=== PATIENT | female | born 1940 | race Caucasian/White ===

== ENCOUNTER → 2019-01-26 08:40 | Outpatient (CLI) | payer MEDICARE, SELFPAY ==
--- NOTE | 2019-01-26 08:47 | US_ITS ---
PROCEDURE: US ABDOMEN LIMITED CLINICAL INDICATION: LIVER LESION Follow-up liver lesion COMPARISON: CT ABDOMEN PELVIS WO CON from 01/17/2019 FINDINGS: PANCREAS: Unremarkable. No obvious mass or abnormal fluid collection. No ductal dilatation LIVER: Previously noted hypodense nodule within the left lobe of the liver represents a cyst measuring 3 x 2.6 cm with some septations along the margin. RIGHT KIDNEY: Unremarkable. Normal size and echogenicity. No hydronephrosis GALLBLADDER: No gallstones, gallbladder wall thickening, pericholecystic fluid, or biliary dilatation. IMPRESSION: Liver lesion noted on the recent CT scan represents a cyst with a small peripheral septation. Otherwise negative right upper quadrant ultrasound Dictated by: Fran Lim MD 01/26/2019 16:24 Electronically signed by Fran Lim MD in [place] 01/26/2019 16:24
--- NOTE | 2019-01-26 08:47 | US_ITS ---
PROCEDURE: US TRANSVAGINAL CLINICAL INDICATION: ADNEXAL MASS Right adnexal mass seen on CT scan COMPARISON: CT ABDOMEN PELVIS WO CON from 01/17/2019 FINDINGS: The uterus is 4 x 3 x 3.4 cm. Combined endometrial thickness is 2 mm. Transabdominal and endovaginal exam is performed. The study is limited technically. The images submitted suggest a cystic mass in the right adnexa at 3 cm.. Free fluid is present in this area. There is a moderate around of surrounding bowel which limits the exam. IMPRESSION: There does appear to be a 3 cm cystic mass in the right adnexa and may be tubal in nature with some associated fluid in this area. Study is somewhat limited technically. MRI of the pelvis without and with contrast may provide further evaluation. Dictated by: Fran Lim MD 01/31/2019 11:58 Electronically signed by Fran Lim MD in [place] 01/31/2019 11:58
== END ==
PROVIDERS: PCP Nurse Practitioner Family; Visit Provider Nurse Practitioner Family
DX: K76.9 Liver disease, unspecified (principal); N94.89 Other specified conditions associated with female genital organs and menstrual cycle
CPT/HCPCS: 76705; 76830

== ENCOUNTER → 2019-02-05 07:26 | Outpatient (CLI) | payer MEDICARE, SELFPAY ==
[2019-02-05 07:52] LABS: Blood Urea Nitrogen 21 mg/dL (7-18); Creatinine,Serum 1.22 mg/dL (0.55-1.02); Estimated Glomerular Filt Rate 43 ml/min (>60); GFR (African American) 52 ML/MIN (>60)
--- NOTE | 2019-02-05 08:04 | MR_ITS ---
PROCEDURE: MR PELVIS WO/W CON CLINICAL INDICATION: ADNEXAL MASS Right adnexal mass seen on previous CT COMPARISON: CT ABDOMEN PELVIS WO CON from 01/17/2019 US TRANSVAGINAL from 01/26/2019 TECHNIQUE: Routine multiplanar multi echo sequences are performed without and with gadolinium enhancement. FINDINGS: There is generalized motion artifact. Study is also somewhat limited secondary to patient's body habitus. There is a somewhat heterogeneous right adnexal mass which measures 3.7 by 2.3 cm. This is larger than what 1 would expect for a normal ovary in a 78-year-old. A 9 mm isointensity is noted along the anterior aspect of this lesion and may represent negative ovary. This lesion is hypointense on T1 and show slight heterogeneous increased signal on T2 but is not a cystic lesion. There is a small amount of fluid in the cul-de-sac and in the right adnexal area. There is some mild low-grade enhancement of the lesion. This does appear separate from the uterus with the gonadal vein emanating from the anterior aspect of this region. What appears to represent the left ovary is small measuring 12 mm. IMPRESSION: Right adnexal mass once again noted in the posterior aspect of the right adnexa measuring 3.7 x 2.3 cm. This does not represent a cystic mass but has a solid appearance and is well-circumscribed.. Differential diagnosis would include ovarian fibroma/, thecoma, fibrothecoma or pedunculated fibroid,. Ovarian carcinoma is usually cystic . There is a small amount of fluid in the cul-de-sac which does raise some concern for neoplasm. Follow-up is therefore recommended. Dictated by: Fran Lim MD 02/06/2019 13:17 Electronically signed by Fran Lim MD in [place] 02/07/2019 14:20
== END ==
PROVIDERS: PCP Nurse Practitioner Family; Visit Provider Nurse Practitioner Family
DX: N94.89 Other specified conditions associated with female genital organs and menstrual cycle (principal)
CPT/HCPCS: 36415; 72197; 82565; 84520; A9576

== ENCOUNTER → 2019-02-09 13:45 | Outpatient (CLI) | payer MEDICARE, SELFPAY ==
[2019-02-09 16:38] LABS: Anion Gap 14.1 mEq/L (5-15); Blood Urea Nitrogen 25 mg/dL (7-18); Calcium 9.2 mg/dL (8.5-10.1); Carbon Dioxide 30 mmol/L (21.0-32.0); Chloride 104 mmol/L (98-107); Estimated Glomerular Filt Rate 34 ml/min (>60); GFR (African American) 41 ML/MIN (>60); Glucose 87 mg/dL (74-106); Potassium 4.1 mmoL/L (3.5-5.1); Sodium 144 mmol/L (136-145); Thyroid Stimulating Hormone 2.98 uIU/ml (0.358-3.740); Uric Acid 7.6 mg/dL (2.6-7.2)
[2019-02-12 06:37] LABS: Cancer Antigen (CA) 125 51.4 U/mL (0.0-38.1)
== END ==
PROVIDERS: PCP Nurse Practitioner Family; Visit Provider Obstetrics & Gynecology
DX: N94.89 Other specified conditions associated with female genital organs and menstrual cycle; R79.89 Other specified abnormal findings of blood chemistry; R60.9 Edema, unspecified; M1A.0620 Idiopathic chronic gout, left knee, without tophus (tophi); D39.0 Neoplasm of uncertain behavior of uterus; R19.09 Other intra-abdominal and pelvic swelling, mass and lump
CPT/HCPCS: 36415; 80048; 83735; 84439; 84443; 84550; 86316

== ENCOUNTER → 2019-10-18 12:33 | Outpatient (CLI) | payer MEDICARE, SELFPAY ==
[2019-10-18 13:46] LABS: 25-OH Vitamin D, Total 38.4 ng/mL (30-100)
[2019-10-18 14:18] LABS: Basophils # 0.1 K/mm3 (0-0.2); Basophils % 0.7 % (0.1-2.0); Eosinophils # 0.3 K/mm3 (0.0-0.4); Eosinophils % 3.8 % (0.1-12.0); Hematocrit 38.9 % (37.0-47.0); Lymphocytes # 2.4 K/mm3 (0.7-4.5); Lymphocytes % 32.8 % (10-50); Mean Corpuscular HGB Conc 33.5 g/dL (31.8-35.4); Mean Corpuscular Hemoglobin 31.2 pg (27.0-31.2); Mean Platelet Volume 8.6 fl (7.4-10.4); Monocytes # 0.4 K/mm3 (0.1-1.0); Monocytes % 4.8 % (1.7-9.3); Neutrophils # 4.2 K/mm3 (1.8-7.8); Platelet Count 185 K/mm3 (142-424); Red Blood Count 4.18 M/mm3 (4.20-5.40); Red Cell Distribution Width 15.5 % (11.5-17.5); White Blood Count 7.3 K/mm3 (4.8-10.8)
[2019-10-18 18:02] LABS: Chloride 104 mmol/L (98-107); Potassium 5.3 mmoL/L (3.5-5.1); Sodium 145 mmol/L (136-145)
[2019-10-18 18:04] LABS: Blood Urea Nitrogen 26 mg/dl (7-17); Estimated Glomerular Filt Rate 27 ml/min (>60); GFR (African American) 33 ML/MIN (>60)
[2019-10-18 18:05] LABS: Alanine Aminotransferase 17 U/L (12-78); Albumin Level 4.1 g/dl (3.5-5.0); Albumin/Globulin Ratio 1.6 (1.1-1.8); Alkaline Phosphatase 136 U/L (38-126); Anion Gap 21.3 mEq/L (5-15); Aspartate Amino Transferase 36 U/L (14-36); Bilirubin,Total 0.6 mg/dl (0.2-1.3); Calcium 9.7 mg/dl (8.4-10.2); Carbon Dioxide 25 mmol/L (22.0-30.0); Chol/HDL Ratio 3.1 (1-3.5); Cholesterol 223 mg/dl (140-200); Globulin 2.6 g/dL (1.3-3.2); Glucose 91 mg/dl (74-100); HDL Cholesterol 73 mg/dl (40-60); Total Protein,Serum 6.7 g/dl (6.3-8.2); Triglycerides 161 mg/dl (30-150); VLDL Cholesterol 32 mg/dL (0-40)
[2019-10-18 18:17] LABS: Direct LDL Cholesterol 117.99 mg/dL (100-129)
[2019-10-18 18:41] LABS: Ferritin 22.7 ng/ml (11.1-264)
[2019-10-18 19:41] LABS: Uric Acid 7.3 mg/dl (2.5-6.2)
[2019-10-18 20:21] LABS: Thyroid Stimulating Hormone 4.94 uIU/mL (0.465-4.68)
[2019-10-20 19:23] LABS: Vitamin B12 1727 pg/mL (232-1245)
== END ==
PROVIDERS: Visit Provider Nurse Practitioner Family
DX: N18.3 Chronic kidney disease, stage 3 (moderate) (principal); M1A.0620 Idiopathic chronic gout, left knee, without tophus (tophi); I12.9 Hypertensive chronic kidney disease with stage 1 through stage 4 chronic kidney disease, or unspecified chronic kidney disease; D50.9 Iron deficiency anemia, unspecified; E53.8 Deficiency of other specified B group vitamins; E55.9 Vitamin D deficiency, unspecified
CPT/HCPCS: 36415; 80053; 80061; 82306; 82607; 82728; 84443; 84550; 85025

== ENCOUNTER 2020-07-18 16:31 | Inpatient (IN) | payer MEDICARE, SELFPAY ==
[2020-07-18] VITALS (17 sets, daily range): BP systolic 113–199; BP diastolic 44–88; PULSE 57–81; RESP 18–20; TEMP 36.4–36.6; O2SAT 90–97; BMI 43.2; BMI 42.7
--- NOTE | 2020-07-18 17:29 | HMH.EDGENADL ---
ED Disposition Clinical Impression: Occult blood positive stool, Blood loss anemia Disposition: Admitted As Inpatient Condition on Discharge: Serious Referrals: Brandt Saavedra MD [Primary Care Provider] - - Critical Care Critical Care Time: No Attestation: On 07/18/20, the high probability of a clinically significant, sudden or life threatening deterioration of the following system(s) required my full and direct attention, intervention and personal management. The time I documented below is in addition to time spent performing reported procedures but includes the following listed in this critical care notation. Medical Decision Making - Reinaldo Inquiry Pt receiving controlled substance: No Vital Signs: 07/18/20 16:34 07/18/20 17:15 07/18/20 18:53 Temperature 97.9 F 97.9 F Temperature Source Oral Oral Pulse Rate 62 62 Pulse Rate [Right Radial] 62 Respiratory Rate 20 18 20 TAR Vitals Timing Pre-Blood Vitals Blood Pressure 140/54 L 173/58 H Blood Pressure [Right Arm] 142/44 H Blood Pressure Mean 96 Blood Pressure Mean [Right Arm] 76 Blood Pressure Source Automatic Cuff Blood Pressure Source [Right Arm] Automatic Cuff Blood Pressure Position Sitting Blood Pressure Position [Right Arm] Sitting 02 Sat by Pulse Oximetry 97 95 92 L Oxygen Delivery Method Room Air Room Air 07/18/20 18:55 07/18/20 19:00 07/18/20 19:05 Temperature 97.9 F 97.9 F 97.9 F Temperature Source Oral Oral Oral Pulse Rate 67 69 68 Pulse Rate [Right Radial] Respiratory Rate 20 20 20 TAR Vitals Timing Start Vitals 5 Minute 10 Minute Blood Pressure 177/56 H 143/60 H 168/52 H Blood Pressure [Right Arm] Blood Pressure Mean 96 87 90 Blood Pressure Mean [Right Arm] Blood Pressure Source Automatic Cuff Automatic Cuff Automatic Cuff Blood Pressure Source [Right Arm] Blood Pressure Position Sitting Sitting Sitting Blood Pressure Position [Right Arm] 02 Sat by Pulse Oximetry 93 L 92 L 93 L Oxygen Delivery Method 07/18/20 19:10 Temperature 97.9 F Temperature Source Oral Pulse Rate 72 Pulse Rate [Right Radial] Respiratory Rate 20 TAR Vitals Timing 15 Minute Blood Pressure 179/70 H Blood Pressure [Right Arm] Blood Pressure Mean 106 Blood Pressure Mean [Right Arm] Blood Pressure Source Automatic Cuff Blood Pressure Source [Right Arm] Blood Pressure Position Sitting Blood Pressure Position [Right Arm] 02 Sat by Pulse Oximetry 93 L Oxygen Delivery Method - Lab Data Lab Results 07/18/20 17:15: WBC 7.3, RBC 2.37 L, Hgb 6.2 L*, Hct 21.3 L*, MCV 89.7, MCH 26.0 L, MCHC 29.0 L, RDW 17.6 H, Plt Count 234, MPV 10.6 H, Neut % (Auto) 67.7, Lymph % (Auto) 21.8, [place] % (Auto) 6.2, Eos % (Auto) 3.6, Baso % (Auto) 0.6, Neut # (Auto) 5.0, Lymph # (Auto) 1.6, [place] # (Auto) 0.5, Eos # (Auto) 0.3, Baso # (Auto) 0.0 07/18/20 17:15: Sodium 145, Potassium 4.4, Chloride 109 H, Carbon Dioxide 27, Anion Gap 13.4, BUN 45 H, Creatinine 2.00 H, Estimated Creat Clear 21, Estimated GFR 24 L, Est GFR ( Amer) 29 L, Glucose 124 H, Calcium 9.1, Total Bilirubin 0.3, AST 27, ALT 22, Alkaline Phosphatase 135 H, Total Protein 6.5, Albumin 3.9, Globulin 2.6, Albumin/Globulin Ratio 1.5 07/18/20 17:15: Blood Type O Positive, Antibody Screen Negative, Crossmatch (AHG) See Detail 07/18/20 17:25: Stool Occult Blood Positive A 07/18/20 17:42: Blood Type Confirm O Positive Result diagrams: 07/18/20 17:15 07/18/20 17:15 Orders (Tests/Meds): ED MEDICATIONS Generic Name Dose Route Start Last Admin Trade Name Antq PRN Reason Stop Dose Admin Sodium Chloride 250 mls @ 25 mls/hr 07/18/20 17:45 07/18/20 19:07 Sod Chlor 0.9% 250ml Bag IV 07/19/20 17:44 25 mls/hr .Q10H MAR Administration ORDERS Category Date Time Status PRBC [Red Blood Cells] Stat [facility] 07/18/20 17:15 Results Type and Screen Stat [facility] 07/18/20 17:15 Results Covid-19 Nasal PCR (H) Routine Lab 07/18/20 16:57 Received - Physician Consul
[2020-07-18 17:31] LABS: Chloride 109 mmol/L (98-107); Sodium 145 mmol/L (136-145)
[2020-07-18 17:32] LABS: Basophils % 0.6 % (0.1-2.0); Eosinophils # 0.3 K/mm3 (0.0-0.4); Eosinophils % 3.6 % (0.1-12.0); Lymphocytes # 1.6 K/mm3 (0.7-4.5); Lymphocytes % 21.8 % (10-50); Mean Corpuscular Volume 89.7 fl (81-99); Mean Platelet Volume 10.6 fl (7.4-10.4); Monocytes # 0.5 K/mm3 (0.1-1.0); Monocytes % 6.2 % (1.7-9.3); Neutrophils % 67.7 % (37.0-80.0); Platelet Count 234 K/mm3 (142-424); Potassium 4.4 mmoL/L (3.5-5.1); Red Blood Count 2.37 M/mm3 (4.20-5.40); Red Cell Distribution Width 17.6 % (11.5-17.5); White Blood Count 7.3 K/mm3 (4.8-10.8)
[2020-07-18 17:33] LABS: Hematocrit 21.3 % (37.0-47.0); Hemoglobin 6.2 g/dL (12.2-16.2)
[2020-07-18 17:34] LABS: Occult Blood,Stool Positive (Negative)
[2020-07-18 17:34] LABS: Alanine Aminotransferase 22 U/L (12-78); Alkaline Phosphatase 135 U/L (38-126); Anion Gap 13.4 mEq/L (5-15); Aspartate Amino Transferase 27 U/L (14-36); Bilirubin,Total 0.3 mg/dl (0.2-1.3); Blood Urea Nitrogen 45 mg/dl (7-17); Carbon Dioxide 27 mmol/L (22.0-30.0); Creatinine Clearance Estimated 21 mL/min (50-200); Estimated Glomerular Filt Rate 24 ml/min (>60); GFR (African American) 29 ML/MIN (>60)
--- NOTE | 2020-07-18 17:34 | PC.NURSE ---
notified ER of critical hgb and hct results
[2020-07-18 17:35] LABS: Albumin Level 3.9 g/dl (3.5-5.0); Albumin/Globulin Ratio 1.5 (1.1-1.8); Calcium 9.1 mg/dl (8.4-10.2); Globulin 2.6 g/dL (1.3-3.2); Glucose 124 mg/dl (74-100); Total Protein,Serum 6.5 g/dl (6.3-8.2)
--- NOTE | 2020-07-18 17:46 | PC.NURSE ---
LAILA Ward obtaining Blood consent at this time.
--- NOTE | 2020-07-18 19:11 | PC.NURSE ---
speaking with Margo at this time.
--- NOTE | 2020-07-18 19:17 | PC.NURSE ---
Called house to get bed for the pt.
--- NOTE | 2020-07-18 19:37 | PC.NURSE ---
report called to rinarn on second floor at this time
--- NOTE | 2020-07-18 19:50 | PC.NURSE ---
patient up to floor via stretcher.
[2020-07-19] VITALS (31 sets, daily range): BP systolic 109–198; BP diastolic 47–95; PULSE 55–80; RESP 16–20; TEMP 36.2–36.8; O2SAT 90–97; BMI 42.6
--- NOTE | 2020-07-19 03:31 | PC.NURSE ---
Pt is alert to self. Has not c/o any discomfort since arrival to floor. Pt did ask multiple times when she can go home. Daughter remained at bedside for part of shift. Pt has only slept at intervals. 2 Units of PRBCs transfused. Pt tolerated well. Lasix 40 mg IV was administered between units. Pt has diuresed well. Purewick is in place. Incontinent pads have been saturated. Post H&H ordered. Awaiting results. No other concerns at this time. Call light within reach. Safety measures in place. Will continue to monitor.
[2020-07-19 03:34] LABS: Hematocrit 26.4 % (37.0-47.0); Hemoglobin 8.2 g/dL (12.2-16.2)
--- NOTE | 2020-07-19 04:17 | PC.NURSE ---
notified of H&H. 8.. Give 2 additional units of blood.
[2020-07-19 07:17] LABS: Basophils % 0.5 % (0.1-2.0); Eosinophils # 0.3 K/mm3 (0.0-0.4); Eosinophils % 3.1 % (0.1-12.0); Hematocrit 27.4 % (37.0-47.0); Hemoglobin 8.3 g/dL (12.2-16.2); Lymphocytes # 1.8 K/mm3 (0.7-4.5); Lymphocytes % 19.5 % (10-50); Mean Corpuscular HGB Conc 30.4 g/dL (31.8-35.4); Mean Corpuscular Hemoglobin 26.9 pg (27.0-31.2); Mean Corpuscular Volume 88.5 fl (81-99); Mean Platelet Volume 8.6 fl (7.4-10.4); Monocytes # 0.6 K/mm3 (0.1-1.0); Monocytes % 6.8 % (1.7-9.3); Neutrophils # 6.6 K/mm3 (1.8-7.8); Neutrophils % 70.1 % (37.0-80.0); Platelet Count 223 K/mm3 (142-424); Red Cell Distribution Width 16.9 % (11.5-17.5); White Blood Count 9.5 K/mm3 (4.8-10.8)
--- NOTE | 2020-07-19 07:29 | HMH.HP ---
*Admission Date: 07/19/20 *Chief complaint: anemic *History of present illness: 80-year-old female with dementia, chronic anemia, chronic lymphedema who presented to the ER at the request of our office because of outpatient labs showing significant anemia (hemoglobin 6.1). Her nurse practitioner made a home visit earlier this week and had home health obtain labs due to patient's pallor and edema. It was not reported at that time any pamela or obvious bleeding. She does have a history of uterine fibroid, possible source of bleeding, but also has history of diverticulosis. No active bleeding on presentation to the ER. Patient admitted, typed and crossed, transfused 2 units overnight. Had an appropriate response with increase of 2 points on her hemoglobin. Still quite anemic this morning however with decision to transfusion additional unit with goal of hemoglobin greater than 9. Patient is very pleasant, disoriented. Answers questions in a seemingly appropriate manner but has no complaints. Denies any bleeding, pain, shortness of breath. States she hardly ever sees her family but it is okay to talk to them. No family at bedside. Discussion with daughter on the phone this morning. She states family sees her daily as they care for her and administer her medications. She has had progressing dementia and outpatient notes show decision to discontinue dementia medications as they are not having any noticeable benefit at this time. She also states that patient has had dark tarry stools that are like glue for the past several weeks. No bright red blood per rectum however. No hematemesis. Surgery consulted from the ER. They have seen her this morning with plan for EGD out of concern for upper GI bleed. Patient is on aspirin and colchicine daily with no GI prophylaxis at home. [facility] History I have reviewed the patient's past medical history: Yes Medical History: Reports:: Anxiety, Atrial Fibrillation, Congestive Heart Failure, Dementia, Depression, Hyperlipidemia, Hypertension Denies:: Cancer, Diabetes Mellitus Type 1, Diabetes Mellitus Type 2, Internal Pacemaker, MRSA *Have you ever received a pneumonia vaccine?: Yes *Have you received a flu vaccine this season?: Yes Other Medical History: Reports: Hypothyroidism, Other Other Surgeries: No: Pacemaker Amputation: No Fractures: No - *Social History Smoking Status: Never smoker Alcohol Intake: never Alcohol Intake Frequency:: holidays/special occasions only Substance Use Type: denies use *Occupational Status:: retired Housing: house Household Members: family *Travel in the last 8 weeks: None - Psychiatric History Pschychiatric History:: Reports:: Anxiety, Depression Family Hx:: Hypertension, Heart Attack Review of Systems - Review of Systems Review of systems:: pertinent systems reviewed and negative unless documented below (14 point review of systems performed, pertinent positives and negatives as per HPI) Meds Home Medications Medication Instructions Recorded Confirmed Type Aspirin [Aspirin 81mg EC Tab] 81 mg PO DAILY 01/17/19 07/18/20 History Cholecalciferol (Vitamin D3) 1,000 unit PO DAILY 01/17/19 07/18/20 History [Vitamin D3 1,000 Unit Cap] Colchicine 0.6 mg PO QODHS 01/17/19 07/18/20 History Cyanocobalamin (Vitamin B-12) 1,000 mcg PO DAILY 01/17/19 07/18/20 History [Vitamin B-12] Donepezil HCl [Donepezil ODT 10mg] 20 mg PO HS 01/17/19 07/19/20 History Memantine HCl [Namenda Xr] 28 mg PO DAILY 01/17/19 07/19/20 History [place]-3 Fatty Acids [Fish Oil] 300 mg PO DAILY 01/17/19 07/18/20 History Oxybutynin Chloride 5 mg PO DAILY 01/17/19 07/18/20 History Pravastatin Sodium [Pravachol] 20 mg PO DAILY 01/17/19 07/19/20 History allopurinoL [Allopurinol 100mg 100 mg PO DAILY 01/17/19 07/19/20 History tablet] carvediloL [Carvedilol 6.25mg Tab] 6.25 mg PO BID 01/17/19 07/19/20 History Furosemide [Lasix 20mg tab] 20 mg PO DAILY 07/18/20 07/19/20 History Quetiapine F
--- NOTE | 2020-07-19 08:02 | PC.NURSE ---
Dr. Weber notified of consult.
--- NOTE | 2020-07-19 09:39 | HMH.GSCON ---
*Admission Date: 07/19/20 *Reason for consult:: Anemia, melena *History of present illness: This is an 80-year-old female seen in consultation from Dr. Saavedra for evaluation regarding anemia/melena. Please see HPI from emergency department evaluation forwarded below. Forwarded from emergency department evaluation: General Adult HPI - General Chief complaint: Weakness Stated complaint: swelling in both legs,weaknees Time Seen by Provider: 07/18/20 17:19 Mode of Arrival: Wheelchair Limitations: No Limitations Description of Symptoms (Recalled from ER Triage Doc. by RN): Pt sent to ER for evaluation by pcp r/t critical lab results from this morning. Pt had blood work this morning at an outside lab, family states they were told pt had a critical hemaglobin and that pt would need a blood transfusion. Pt family reports pt has also been having trouble with marcelina leg swelling. [facility] staff has been wrapping pt BLE in timbo boots since yesterday for swelling and blisters. - History of Present Illness HPI narrative: Sent into the emergency department because of a critical low hemoglobin of 6.1 obtained on a blood draw by home health care this morning. The patient denies any complaints, but has dementia, she is not a reliable historian. The patient's daughter states that the patient has not had any vomiting of blood or any visible blood in the stool. She says that she is always had black tarry stools, no recent change. Patient denies any pain. Daughter believes that she had anemia years ago, but nothing recently. She says that the patient had blood work drawn a couple of months ago and everything was okay at that time. The patient also had Unna boots put on her legs today. Daughter states that she has cellulitis and blisters. Review of Systems - Constitutional Reports weakness - Eyes Denies discharge - ENT Denies difficulty swallowing - *Cardiovascular Reports lightheadedness - *Respiratory Denies cough - *Gastrointestinal Reports black, tarry stools, Denies abdominal pain - *Genitourinary Denies abnormal vaginal bleeding - *Musculoskeletal Reports muscle weakness - Integumentary/Breasts Reports lesions - *Neurologic Denies seizure-like activity - Psychiatric Denies anxiety - Endocrine Denies cold intolerance - Hematologic/Lymphatic Denies easy bleeding - Allergic/Immunologic Denies wheezing [facility] History Medical History: Reports:: Anxiety, Atrial Fibrillation, Congestive Heart Failure, Dementia, Depression, Hyperlipidemia, Hypertension Denies:: Cancer, Diabetes Mellitus Type 1, Diabetes Mellitus Type 2, Internal Pacemaker, MRSA *Have you ever received a pneumonia vaccine?: Yes *Have you received a flu vaccine this season?: Yes Other Medical History: Reports: Hypothyroidism, Other Other Surgeries: No: Pacemaker Amputation: No Fractures: No - *Social History Smoking Status: Never smoker Alcohol Intake: never Alcohol Intake Frequency:: holidays/special occasions only Substance Use Type: denies use *Occupational Status:: retired Housing: house Household Members: family *Travel in the last 8 weeks: None - Psychiatric History Pschychiatric History:: Reports:: Anxiety, Depression Family Hx:: Hypertension, Heart Attack Meds Home Medications Medication Instructions Recorded Confirmed Type Aspirin [Aspirin 81mg EC Tab] 81 mg PO DAILY 01/17/19 07/18/20 History Cholecalciferol (Vitamin D3) 1,000 unit PO DAILY 01/17/19 07/18/20 History [Vitamin D3 1,000 Unit Cap] Colchicine 0.6 mg PO QODHS 01/17/19 07/18/20 History Cyanocobalamin (Vitamin B-12) 1,000 mcg PO DAILY 01/17/19 07/18/20 History [Vitamin B-12] Donepezil HCl [Donepezil ODT 10mg] 20 mg PO HS 01/17/19 07/19/20 History Memantine HCl [Namenda Xr] 28 mg PO DAILY 01/17/19 07/19/20 History [place]-3 Fatty Acids [Fish Oil] 300 mg PO DAILY 01/17/19 07/18/20 History Oxybutynin Chloride 5 mg PO DAILY 01/17/19 07/18/20 History
--- NOTE | 2020-07-19 09:48 | PC.NURSE ---
dr ashton stated to only give the third unit and to hold the 4th. check h/h once stable. holding meds for egd and will give once back to floor
--- NOTE | 2020-07-19 09:49 | PC.NURSE ---
off floor at this time for egd
--- NOTE | 2020-07-19 11:00 | P.PN_ITS ---
[facility] Anesthesia Checklist - Patient Identification Patient Identification: Arm Band - Structural Data Admitted From: Inpatient Planned Operative Procedure/s: egd Consent for Planned Operative Procedure(s) Verified: Yes Verified Documents: Surgical Consent, History and Physical - NPO Status Verified Time NPO: 00:00 - Additional verifications Anesthesia Reactions: No - Airway Assessment C-Spine Mobility Assessed: Yes (mp2) TMJ Mobility Assessed: Yes Dentition: Good Dentition - Neurological Assessment Level of Consciousness: Awake, Inappropriate - Anesthesia Plan Anesthesia Risk discussed: Yes Anesthesia Plan: Verified ASA Class: III Anesthesia Type: MAC [facility] History I have reviewed the patient's past medical history: Yes Medical History: Reports:: Anxiety, Atrial Fibrillation, Congestive Heart Failure, Dementia, Depression, Hyperlipidemia, Hypertension Denies:: Cancer, Diabetes Mellitus Type 1, Diabetes Mellitus Type 2, Internal Pacemaker, MRSA *Have you ever received a pneumonia vaccine?: Yes *Have you received a flu vaccine this season?: Yes Other Medical History: Reports: Hypothyroidism, Other Anesthesia experience/problems:: nac Other Surgeries: Yes: Other. No: Pacemaker Amputation: No Fractures: No - *Social History Smoking Status: Never smoker Alcohol Intake: never Alcohol Intake Frequency:: holidays/special occasions only Substance Use Type: denies use *Occupational Status:: retired Housing: house Household Members: family *Travel in the last 8 weeks: None - Psychiatric History Pschychiatric History:: Reports:: Anxiety, Depression Family Hx:: Hypertension, Heart Attack
--- NOTE | 2020-07-19 11:05 | P.CONPHA_ITS ---
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
--- NOTE | 2020-07-19 11:05 | HMH.SCOPE ---
- Procedure: Date: 07/19/20 Patient Date of :: 1940 Procedure Performed:: Esophagogastroduodenoscopy with biopsy and epinephrine injection Indications:: Anemia Melena Performing Provider:: Madan Weber MD Referring Provider:: Dr. Saavedra Sedation:: Monitored anesthesia care Procedure:: After informed consent was obtained the patient was taken to the endoscopy suite. Sedation ensued after the patient was transferred to the left lateral decubitus position. Pulse, blood pressure, and oxygen saturation were monitored throughout the procedure. The endoscope was advanced beyond the duodenal bulb. Retroflexion within the gastric lumen was accomplished. The gastroscope was carefully removed and the patient was transferred to recovery in stable condition. Please see findings and specimens below for detail. Findings:: Small lobulated (essentially healed) prepyloric ulcer Small focus of sanguinous ooze along sweep of D2 (small ulceration versus possible ampullary bleeding) Epinephrine injection (6 mL) at site of sanguinous ooze Note: Visualization difficult secondary to angulation and severe peristalsis Specimens:: Prepyloric ulceration Recommendations:: Continue proton pump inhibition Serial hemoglobin/hematocrit Repeat EGD (possible ERCP) if signs of ongoing blood loss Complications:: No immediate Estimated blood obtained (mL): 1
--- NOTE | 2020-07-19 11:11 | PC.NURSE ---
blood finished in surgery at 1004
[2020-07-19 12:01] LABS: Hematocrit 29.5 % (37.0-47.0)
[2020-07-19 12:08] LABS: Hemoglobin 9.3 g/dL (12.2-16.2)
--- NOTE | 2020-07-19 13:28 | HMH.PHAINT ---
MEDICATION RECONCILIATION COMPLETED ON PATIENT USING EXTERNAL FILL HISTORY FROM PHARMACY AND LIST FROM MD OFFICE. -SHERRY PAREDESD
--- NOTE | 2020-07-19 16:03 | PC.NURSE ---
PATIENT HAS DONE OKAY THIS SHIFT. DID GET UP OUT OF BED WITH OUT ASSISTANCE. ASSISTED TO CHAIR WITH CHAIR ALARM IN PLACE. SHE ALSO PULLED OUT IV AND NEW ONE PLACED. BP HAS BEEN SLIGHTLY ELEVATED. TOLERATING CLEAR LIQUID DIET, AND STATING SHE IS HUNGRY. INCONTINENT OF URINE. NO SIGNS OF BOWELS MOVING. MD STATED TO NOT REMOVE UNNA BOOT FOR PICTURES AT THIS TIME SINCE THEY WERE JUST PLACED YESTERDAY. VITALS STABLE SLIGHT COUGH AFTER PROCEDURE BUT HTIS HAS DECREASED. SLIGHT WHEEZE ALSO NOTED AT TIMES.
--- NOTE | 2020-07-20 03:36 | PC.WOUNDNOTE ---
Pt has remains confused. Has attempted to get OOB without assistance multiple times. Discouragement reinforced. Safety alarms in place. Appetite is excellent. She has ate multiple times due to not remembering last meal. Pt has ambulated to BR with assistance. Has been incontinent also of urine. No BM. BP has been elevated at times this shift. She remains on RA. Lungs noted to have crackles to Mark bases with scattered wheezing. New IV placed. #20 in LFA. No other concerns. Call light within reach. Will continue to monitor.
[2020-07-20 03:56] VITALS: BP 152/77; PULSE 62; RESP 19; TEMP 36.6; O2SAT 92
[2020-07-20 05:29] VITALS: BMI 42.5
[2020-07-20 07:20] LABS: Basophils # 0.1 K/mm3 (0-0.2); Basophils % 0.6 % (0.1-2.0); Eosinophils # 0.3 K/mm3 (0.0-0.4); Eosinophils % 3.8 % (0.1-12.0); Hematocrit 26.9 % (37.0-47.0); Hemoglobin 8.6 g/dL (12.2-16.2); Lymphocytes # 2.1 K/mm3 (0.7-4.5); Lymphocytes % 23.8 % (10-50); Mean Corpuscular Hemoglobin 27.5 pg (27.0-31.2); Mean Corpuscular Volume 85.8 fl (81-99); Mean Platelet Volume 8.6 fl (7.4-10.4); Monocytes # 0.6 K/mm3 (0.1-1.0); Neutrophils # 5.6 K/mm3 (1.8-7.8); Neutrophils % 64.8 % (37.0-80.0); Platelet Count 202 K/mm3 (142-424); Red Blood Count 3.14 M/mm3 (4.20-5.40); Red Cell Distribution Width 16.9 % (11.5-17.5); White Blood Count 8.7 K/mm3 (4.8-10.8)
[2020-07-20 07:31] LABS: Alanine Aminotransferase 16 U/L (12-78); Albumin Level 3.1 g/dl (3.5-5.0); Albumin/Globulin Ratio 1.2 (1.1-1.8); Alkaline Phosphatase 114 U/L (38-126); Anion Gap 10.2 mEq/L (5-15); Aspartate Amino Transferase 27 U/L (14-36); Bilirubin,Total 0.5 mg/dl (0.2-1.3); Blood Urea Nitrogen 35 mg/dl (7-17); Calcium 8.6 mg/dl (8.4-10.2); Carbon Dioxide 24 mmol/L (22.0-30.0); Chloride 110 mmol/L (98-107); Creatinine Clearance Estimated 26 mL/min (50-200); Estimated Glomerular Filt Rate 31 ml/min (>60); GFR (African American) 38 ML/MIN (>60); Globulin 2.6 g/dL (1.3-3.2); Glucose 91 mg/dl (74-100); Potassium 4.2 mmoL/L (3.5-5.1); Sodium 140 mmol/L (136-145); Total Protein,Serum 5.7 g/dl (6.3-8.2)
[2020-07-20 07:53] VITALS: BP 154/77; PULSE 68; RESP 16; TEMP 36.8; O2SAT 91
[2020-07-20 07:56] VITALS: O2SAT 91
--- NOTE | 2020-07-20 08:48 | HMH.ACPN2 ---
Internal Medicine - PN: Subj *Date: 07/20/20 *Time: 08:48 Interval history: Patient did well overnight. Ate fairly well. No new evidence of GI bleeding overnight per nursing staff. Exam Vital signs and Labs for Last 24 Hours: Temp Pulse Resp BP Pulse Ox 98.3 F 68 16 154/77 H 91 L 07/20/20 07:53 07/20/20 07:53 07/20/20 07:53 07/20/20 07:53 07/20/20 07:56 Laboratory Results - last 24 hr 07/18/20 17:15: Crossmatch (AHG) See Detail 07/19/20 11:55: Hgb 9.3 L D, Hct 29.5 L 07/20/20 06:40: WBC 8.7, RBC 3.14 L, Hgb 8.6 L, Hct 26.9 L, MCV 85.8, MCH 27.5, MCHC 32.0, RDW 16.9, Plt Count 202, MPV 8.6, Neut % (Auto) 64.8, Lymph % (Auto) 23.8, [place] % (Auto) 7.0, Eos % (Auto) 3.8, Baso % (Auto) 0.6, Neut # (Auto) 5.6, Lymph # (Auto) 2.1, [place] # (Auto) 0.6, Eos # (Auto) 0.3, Baso # (Auto) 0.1 07/20/20 06:40: Sodium 140, Potassium 4.2, Chloride 110 H, Carbon Dioxide 24, Anion Gap 10.2, BUN 35 H, Creatinine 1.60 H, Estimated Creat Clear 26, Estimated GFR 31 L, Est GFR ( Amer) 38 L D, Glucose 91, Calcium 8.6, Magnesium 2.0, Total Bilirubin 0.5, AST 27, ALT 16 D, Alkaline Phosphatase 114, Total Protein 5.7 L, Albumin 3.1 L, Globulin 2.6, Albumin/Globulin Ratio 1.2 I & O for Last 24 hours: Intake & Output 07/17/20 07/18/20 07/19/20 07/20/20 11:59 11:59 11:59 11:59 Intake Total 216 / 216 800 / 800 Output Total 2950 / 2950 400 / 400 Balance -2734 / -2734 400 / 400 Weight 265 lb 3 oz 265 lb Narrative: Pleasant, demented. Able to answer yes or no questions but somewhat unreliable. Clear oropharynx, no obvious ENT abnormalities Morbid obesity limits accuracy of her exam. Anterior lung vela clear, heart rate regular. Abdomen is soft, difficult exam because of obesity. Upper extremities without edema. Lower extremities wrapped in Unna boots. No evidence of leakage through bandages and legs above the Unna boots are not edematous. Other than memory loss and paucity of vocabulary neurologic exam is nonfocal. Assessment and Plan (1) Blood loss anemia Status: Acute Category: Medical Code(s): D50.0 - Iron deficiency anemia secondary to blood loss (chronic) (2) Chronic kidney disease (CKD) Status: Chronic Qualifiers: Chronic kidney disease stage: stage 4 (severe) Qualified Code(s): N18.4 - Chronic kidney disease, stage 4 (severe) Category: Medical Code(s): N18.9 - Chronic kidney disease, unspecified (3) Melena Status: Acute Category: Medical Code(s): K92.1 - Melena (4) Dementia Status: Chronic Qualifiers: Dementia type: unspecified type Dementia behavioral disturbance: without behavioral disturbance Qualified Code(s): F03.90 - Unspecified dementia without behavioral disturbance Category: Medical Code(s): F03.90 - Unspecified dementia without behavioral disturbance (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 Acute kidney injury has improved. Plan will be to get labs tomorrow. If hemoglobin is stabilized consider discharge home on proton pump inhibitor. Discussed with daughter situation via phone. Discussed ongoing care at home-home health is now in place. Discussed ongoing dementia care. Brought up the possibility of changing her CODE STATUS. She is open to this but will check with her brother.
--- NOTE | 2020-07-20 08:57 | HMH.GSPN ---
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 She also had a very small area of apparent sanguinous ooze along the duodenal sweep. Small ulceration, scope trauma, or ampullary bleeding are all possibilities as this area was difficult to visualize due to location and significant peristalsis. Repeat EGD (possibly requiring ERCP scope) may be required if she shows signs of ongoing blood loss. Currently, she is stable with no signs of definitive blood loss. Repeat hemoglobin/hematocrit this afternoon will be ordered. She will be made NPO p MN in preparation for possible need for repeat endoscopic evaluation. Exam Vital signs and Labs for Last 24 Hours: Temp Pulse Resp BP Pulse Ox 98.3 F 68 16 154/77 H 91 L 07/20/20 07:53 07/20/20 07:53 07/20/20 07:53 07/20/20 07:53 07/20/20 07:56 Laboratory Results - last 24 hr 07/18/20 17:15: Crossmatch (AHG) See Detail 07/19/20 11:55: Hgb 9.3 L D, Hct 29.5 L 07/20/20 06:40: WBC 8.7, RBC 3.14 L, Hgb 8.6 L, Hct 26.9 L, MCV 85.8, MCH 27.5, MCHC 32.0, RDW 16.9, Plt Count 202, MPV 8.6, Neut % (Auto) 64.8, Lymph % (Auto) 23.8, [place] % (Auto) 7.0, Eos % (Auto) 3.8, Baso % (Auto) 0.6, Neut # (Auto) 5.6, Lymph # (Auto) 2.1, [place] # (Auto) 0.6, Eos # (Auto) 0.3, Baso # (Auto) 0.1 07/20/20 06:40: Sodium 140, Potassium 4.2, Chloride 110 H, Carbon Dioxide 24, Anion Gap 10.2, BUN 35 H, Creatinine 1.60 H, Estimated Creat Clear 26, Estimated GFR 31 L, Est GFR ( Amer) 38 L D, Glucose 91, Calcium 8.6, Magnesium 2.0, Total Bilirubin 0.5, AST 27, ALT 16 D, Alkaline Phosphatase 114, Total Protein 5.7 L, Albumin 3.1 L, Globulin 2.6, Albumin/Globulin Ratio 1.2 I & O for Last 24 hours: Intake & Output 07/17/20 07/18/20 07/19/20 07/20/20 11:59 11:59 11:59 11:59 Intake Total 216 / 216 800 / 800 Output Total 2950 / 2950 400 / 400 Balance -2734 / -2734 400 / 400 Weight 265 lb 3 oz 265 lb - Constitutional no acute distress - *Routine Respiratory Exam Absent: respiratory distress - *Routine Cardiovascular Exam Comments: Regular rate - *Routine Abdominal Exam Present: soft
[2020-07-20 15:19] LABS: Hematocrit 29.8 % (37.0-47.0); Hemoglobin 9.2 g/dL (12.2-16.2)
[2020-07-20 16:00] VITALS: BP 115/46; PULSE 67; RESP 18; TEMP 37.2; O2SAT 90
--- NOTE | 2020-07-20 17:28 | PC.NURSE ---
Addendum entered by Chiquis Powell RN 07/20/20 17:59: pt pulled iv out again, new 20g in the RFA. Original Note: pt is confused. she has been combative with staff today while changing her brief. pt pulled iv out today, a new 20G placed to [facility]. family visited today. spoke with dr. christian regarding hearing crackles in patients lungs as well as wheezing. he ordered to d/c ivf and give a one time dose of lasix 40mg iv. order faxed to [facility], awaiting for them to be placed. pt has slept most of day. safety in place. vss. call light within reach. will cont. to monitor.
[2020-07-20 20:00] VITALS: BP 161/72; PULSE 63; RESP 22; TEMP 36.9; O2SAT 94
--- NOTE | 2020-07-21 03:12 | PC.NURSE ---
NO acute changes overnight. Pt has slept well through the night, alert to self. No c/o pain this shift. pt has been NPO since midnight. Pt ripped out IV in L forearm, new one has been placed. Unna boots on BLE. Lungs CTA, on room air. bed safety in place. VSS, call light in reach, no concerns at this time.
[2020-07-21 03:36] VITALS: BP 143/72; PULSE 70; RESP 21; TEMP 36.9; O2SAT 90
[2020-07-21 05:08] VITALS: BMI 42.5
[2020-07-21 07:50] LABS: Basophils % 0.5 % (0.1-2.0); Eosinophils # 0.5 K/mm3 (0.0-0.4); Eosinophils % 6.1 % (0.1-12.0); Hematocrit 28.7 % (37.0-47.0); Lymphocytes # 2.3 K/mm3 (0.7-4.5); Lymphocytes % 28.7 % (10-50); Mean Corpuscular HGB Conc 31.3 g/dL (31.8-35.4); Mean Corpuscular Hemoglobin 26.9 pg (27.0-31.2); Mean Platelet Volume 8.3 fl (7.4-10.4); Monocytes # 0.5 K/mm3 (0.1-1.0); Monocytes % 6.8 % (1.7-9.3); Neutrophils # 4.6 K/mm3 (1.8-7.8); Neutrophils % 57.9 % (37.0-80.0); Platelet Count 225 K/mm3 (142-424); Red Blood Count 3.34 M/mm3 (4.20-5.40); Red Cell Distribution Width 16.9 % (11.5-17.5); White Blood Count 7.9 K/mm3 (4.8-10.8)
[2020-07-21 07:53] LABS: Anion Gap 7.8 mEq/L (5-15); Blood Urea Nitrogen 36 mg/dl (7-17); Calcium 8.6 mg/dl (8.4-10.2); Carbon Dioxide 31 mmol/L (22.0-30.0); Chloride 108 mmol/L (98-107); Creatinine Clearance Estimated 23 mL/min (50-200); Estimated Glomerular Filt Rate 27 ml/min (>60); GFR (African American) 33 ML/MIN (>60); Glucose 93 mg/dl (74-100); Potassium 3.8 mmoL/L (3.5-5.1); Sodium 143 mmol/L (136-145)
[2020-07-21 08:00] VITALS: BP 153/57; PULSE 64; RESP 18; TEMP 36.4; O2SAT 93
--- NOTE | 2020-07-21 08:53 | HMH.OTEV ---
OT Inpatient Evaluation Rehab OT IP Evaluation Start: 07/21/20 08:07 Freq: ONCE Status: Complete Protocol: Document 07/21/20 08:49 CHERYLUISA (Rec: 07/21/20 08:53 APURVA [id number]) Rehab OT IP Assessment Subjective History *Admission Date: 07/19/20 *Chief complaint: anemic *History of present illness: 80-year-old female with dementia, chronic anemia, chronic lymphedema who presented to the ER at the request of our office because of outpatient labs showing significant anemia (hemoglobin 6.1). Her nurse practitioner made a home visit earlier this week and had home health obtain labs due to patient's pallor and edema. It was not reported at that time any pamela or obvious bleeding. She does have a history of uterine fibroid, possible source of bleeding, but also has history of diverticulosis. No active bleeding on presentation to the ER. Patient admitted, typed and crossed, transfused 2 units overnight. Had an appropriate response with increase of 2 points on her hemoglobin. Still quite anemic this morning however with decision to transfusion additional unit with goal of hemoglobin greater than 9. Patient is very pleasant, disoriented. Answers questions in a seemingly appropriate manner but has no complaints. Denies any bleeding, pain, shortness of breath. States she hardly ever sees her family but it is okay to talk to them. No family at bedside. Discussion with daughter on the phone this morning. She states family sees her daily as they care
--- NOTE | 2020-07-21 09:27 | HMH.PTEV ---
Physical Therapy Evaluation Rehab PT IP Evaluation Start: 07/21/20 08:07 Freq: ONCE Status: Active Protocol: Document 07/21/20 09:00 PHORJOSE RAMON (Rec: 07/21/20 09:27 PHORNE [id number]) Subjective/History History History 80 yowf adm to [facility] with anemia and general weakness. She has dementia at baseline, but lives alone without steps to enter. She has family that assist her on a daily basis per report. Subjective Subjective Pt with no c/o this am, asks when she can go home. Rehab PT IP Eval Objective Appearance Patient Behavior Appropriate Patient Orientation Person Difficulty following instructions none Speech Pattern Clear Ambulation Patient Able to Ambulate Yes Ambulation Observation IP General Gait Pattern Observation Wide Based Gait Ambulation Distance (feet) 25 Ambulation Assistive Device Rolling Walker Ambulation Ability Contact Guard/Hand Hold Balance Ability to Arise Able, uses arms to help Sitting Balance Steady, safe Standing Balance Steady, wide stance Dynamic Sitting Balance Ability Good Dynamic Standing Balance Ability Fair Transfers Chair Transfer Ability Contact Guard/Hand Hold Sit to Stand Bed Transfer Ability Contact Guard/Hand Hold Sit to Stand Chair Transfer Ability Contact Guard/Hand Hold ROM All Extremities PT ROM Status WFL MMT All Extremities PT MMT WFL Rehab PT IP prob,goals,plan Problems Date of Evaluation: 07/21/20 PT IP Problems Bed Mobility,Transfers,Gait Rehab Potential Rehab Potential Good Plan PT Intervention Plan Bed Mobility,Transfers,Gait, Therapeutic Exercise PT Plan Frequency BID Duration LOS Discharge Goals Bed Transfer Ability Contact Guard/Hand Hold Sit to Stand Chair Transfer Ability Contact Guard/Hand Hold Ambulation Assistive Device Rolling Walker Ambulation Distance (feet) 40 Discharge Plan PT Discharge Plan Pt is most appropriate for rehab placement, but could return home once medically stable with prior level of support. G -code Required No Eval Complexity Eval Charge Codes 26065 - Moderate Complexity PHYSICIAN CERTIFICATION: I certify the specified therapy services for Trina Meng Halle
--- NOTE | 2020-07-21 10:15 | PC.NURSE ---
This nurse went in to check on patient and noticed patient had pulled IV out. Dr Jimenez notified and stated its ok to leave IV out. Medication switched to PO.
--- NOTE | 2020-07-21 11:05 | HMH.GSPN ---
Subjective Patient reports: no new complaints Progress Note: A&P (1) Blood loss anemia Status: Acute Assessment and plan: Currently stable with no sign of active hemorrhage. Continue proton pump inhibition. May require repeat endoscopic evaluation (? ERCP scope) if she develops signs of recurrent hemorrhage. Would likely benefit from evaluation of the colon and possibly small bowel as initial endoscopic findings were somewhat equivocal. 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 (6) Morbid obesity Status: Chronic (7) Acute kidney injury superimposed on chronic kidney disease Status: Acute Exam Vital signs and Labs for Last 24 Hours: Temp Pulse Resp BP Pulse Ox 97.6 F 64 18 153/57 H 93 L 07/21/20 08:00 07/21/20 08:00 07/21/20 08:00 07/21/20 08:00 07/21/20 08:00 Laboratory Results - last 24 hr 07/21/20 07:09: WBC 7.9, RBC 3.34 L, Hgb 9.0 L, Hct 28.7 L, MCV 86.0, MCH 26.9 L, MCHC 31.3 L, RDW 16.9, Plt Count 225, MPV 8.3, Neut % (Auto) 57.9, Lymph % (Auto) 28.7, Early % (Auto) 6.8, Eos % (Auto) 6.1, Baso % (Auto) 0.5, Neut # (Auto) 4.6, Lymph # (Auto) 2.3, Early # (Auto) 0.5, Eos # (Auto) 0.5 H, Baso # (Auto) 0.0 07/21/20 07:09: Sodium 143, Potassium 3.8, Chloride 108 H, Carbon Dioxide 31 H D, Anion Gap 7.8, BUN 36 H, Creatinine 1.80 H, Estimated Creat Clear 23, Estimated GFR 27 L, Est GFR ( Amer) 33 L, Glucose 93, Calcium 8.6 I & O for Last 24 hours: Intake & Output 07/19/20 07/20/20 07/21/20 07/22/20 11:59 11:59 11:59 11:59 Intake Total 216 / 216 800 / 800 480 / 480 240 / 240 Output Total 2950 / 2950 400 / 400 Balance -2734 / -2734 400 / 400 480 / 480 240 / 240 Weight 265 lb 3 oz 265 lb 264 lb 11.2 oz - Constitutional no acute distress - *Routine Respiratory Exam Absent: respiratory distress - *Routine Cardiovascular Exam Comments: regular rate - *Routine Abdominal Exam Present: soft
--- NOTE | 2020-07-21 13:57 | HMH.ACPN2 ---
Internal Medicine - PN: Subj *Date: 07/21/20 *Time: 13:57 Interval history: Did well overnight... no complaints this am... dementia unchanged. Exam Vital signs and Labs for Last 24 Hours: Temp Pulse Resp BP Pulse Ox 97.6 F 64 18 153/57 H 93 L 07/21/20 08:00 07/21/20 08:00 07/21/20 08:00 07/21/20 08:00 07/21/20 08:00 Laboratory Results - last 24 hr 07/20/20 15:10: Hgb 9.2 L, Hct 29.8 L 07/21/20 07:09: WBC 7.9, RBC 3.34 L, Hgb 9.0 L, Hct 28.7 L, MCV 86.0, MCH 26.9 L, MCHC 31.3 L, RDW 16.9, Plt Count 225, MPV 8.3, Neut % (Auto) 57.9, Lymph % (Auto) 28.7, [place] % (Auto) 6.8, Eos % (Auto) 6.1, Baso % (Auto) 0.5, Neut # (Auto) 4.6, Lymph # (Auto) 2.3, [place] # (Auto) 0.5, Eos # (Auto) 0.5 H, Baso # (Auto) 0.0 07/21/20 07:09: Sodium 143, Potassium 3.8, Chloride 108 H, Carbon Dioxide 31 H D, Anion Gap 7.8, BUN 36 H, Creatinine 1.80 H, Estimated Creat Clear 23, Estimated GFR 27 L, Est GFR ( Amer) 33 L, Glucose 93, Calcium 8.6 I & O for Last 24 hours: Intake & Output 07/19/20 07/20/20 07/21/20 07/22/20 11:59 11:59 11:59 11:59 Intake Total 216 / 216 800 / 800 480 / 480 240 / 240 Output Total 2950 / 2950 400 / 400 Balance -2734 / -2734 400 / 400 480 / 480 240 / 240 Weight 265 lb 3 oz 265 lb 264 lb 11.2 oz - Constitutional no acute distress - *Routine HEENT Exam Head: Present: normocephalic Eye: Present: EOMI, PERRL ENT: Present: mucous membranes moist - *Routine Neck Exam Present: supple. Absent: lymphadenopathy - *Routine Respiratory Exam Present: CTA bilaterally - *Routine Cardiovascular Exam Present: RRR - *Routine Abdominal Exam Present: soft, normoactive bowel sounds. Absent: tenderness - *Routine Extremities Exam Present: edema. Absent: cyanosis, clubbing Comments: In RIGO boots.... no edema above the wrapping. Assessment and Plan (1) Blood loss anemia Status: Acute Category: Medical Code(s): D50.0 - Iron deficiency anemia secondary to blood loss (chronic) (2) Chronic kidney disease (CKD) Status: Chronic Qualifiers: Chronic kidney disease stage: stage 4 (severe) Qualified Code(s): N18.4 - Chronic kidney disease, stage 4 (severe) Category: Medical Code(s): N18.9 - Chronic kidney disease, unspecified (3) Melena Status: Acute Category: Medical Code(s): K92.1 - Melena (4) Dementia Status: Chronic Qualifiers: Dementia type: unspecified type Dementia behavioral disturbance: without behavioral disturbance Qualified Code(s): F03.90 - Unspecified dementia without behavioral disturbance Category: Medical Code(s): F03.90 - Unspecified dementia without behavioral disturbance (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 Discussed case with surgeon personally, we will hold off on further endoscopy unless there is evidence of further blood loss clinically. If there is no evidence of further blood loss would consider discharge tomorrow if kidney function remains relatively stable and physical therapy and Occupational Therapy think she is safe to go home with home health with ongoing monitoring for her medical medical problems.
--- NOTE | 2020-07-21 15:06 | PC.NURSE ---
Unna boots to BLE changed
--- NOTE | 2020-07-21 15:07 | PC.NURSE ---
Pt is alert to self. She has been up to the chair for a large portion of the shift and tolerated well. Per physical therapy she is an assist x1. Edema and weeping noted to BLE's. Unna boots changed due to this. Appetite is good and tolerating soft diet well. She says she wants to go home, even if it means she has to walk home. Pt encouraged to stay and reminded that she may discharged tomorrow. She has been receptive to redirection and mostly cooperative with care. No change from morning assessment except for IV being removed by patient. Family updated on plan of care. Pull alarm in place and call light within reach. Will continue to monitor.
[2020-07-21 16:00] VITALS: BP 152/66; PULSE 66; RESP 18; TEMP 36.9; O2SAT 95
[2020-07-21 20:00] VITALS: BP 190/71; PULSE 62; RESP 20; TEMP 36.7; O2SAT 96
[2020-07-22 04:00] VITALS: BP 174/58; PULSE 69; RESP 18; TEMP 36.5; O2SAT 96
[2020-07-22 05:00] VITALS: BMI 40.6
[2020-07-22 08:00] VITALS: BP 147/49; PULSE 49; RESP 20; TEMP 37.3; O2SAT 95
[2020-07-22 08:14] LABS: Chloride 107 mmol/L (98-107); Potassium 3.6 mmoL/L (3.5-5.1); Sodium 144 mmol/L (136-145)
[2020-07-22 08:17] LABS: Anion Gap 11.6 mEq/L (5-15); Blood Urea Nitrogen 38 mg/dl (7-17); Calcium 8.8 mg/dl (8.4-10.2); Carbon Dioxide 29 mmol/L (22.0-30.0); Creatinine Clearance Estimated 51 mL/min (50-200); Estimated Glomerular Filt Rate 31 ml/min (>60); GFR (African American) 38 ML/MIN (>60); Glucose 98 mg/dl (74-100)
[2020-07-22 08:20] LABS: Basophils # 0.1 K/mm3 (0-0.2); Basophils % 0.7 % (0.1-2.0); Eosinophils # 0.5 K/mm3 (0.0-0.4); Eosinophils % 5.8 % (0.1-12.0); Hematocrit 30.3 % (37.0-47.0); Hemoglobin 9.4 g/dL (12.2-16.2); Lymphocytes % 24.5 % (10-50); Mean Corpuscular HGB Conc 31.1 g/dL (31.8-35.4); Mean Corpuscular Hemoglobin 26.7 pg (27.0-31.2); Mean Corpuscular Volume 85.9 fl (81-99); Mean Platelet Volume 8.2 fl (7.4-10.4); Monocytes # 0.6 K/mm3 (0.1-1.0); Monocytes % 6.7 % (1.7-9.3); Neutrophils % 62.2 % (37.0-80.0); Platelet Count 228 K/mm3 (142-424); Red Blood Count 3.53 M/mm3 (4.20-5.40); Red Cell Distribution Width 16.7 % (11.5-17.5); White Blood Count 8.1 K/mm3 (4.8-10.8)
--- NOTE | 2020-07-22 08:20 | HMH.DCSUM ---
General - General Admission date:: 07/18/20 Discharge date: 07/22/20 HPI HPI: 80-year-old female with dementia, chronic anemia, chronic lymphedema who presented to the ER at the request of our office because of outpatient labs showing significant anemia (hemoglobin 6.1). Her nurse practitioner made a home visit earlier this week and had home health obtain labs due to patient's pallor and edema. It was not reported at that time any pamela or obvious bleeding. She does have a history of uterine fibroid, possible source of bleeding, but also has history of diverticulosis. No active bleeding on presentation to the ER. Patient admitted, typed and crossed, transfused 2 units overnight. Had an appropriate response with increase of 2 points on her hemoglobin. Still quite anemic this morning however with decision to transfusion additional unit with goal of hemoglobin greater than 9. Patient is very pleasant, disoriented. Answers questions in a seemingly appropriate manner but has no complaints. Denies any bleeding, pain, shortness of breath. States she hardly ever sees her family but it is okay to talk to them. No family at bedside. Discussion with daughter on the phone this morning. She states family sees her daily as they care for her and administer her medications. She has had progressing dementia and outpatient notes show decision to discontinue dementia medications as they are not having any noticeable benefit at this time. She also states that patient has had dark tarry stools that are like glue for the past several weeks. No bright red blood per rectum however. No hematemesis. Surgery consulted from the ER. They have seen her this morning with plan for EGD out of concern for upper GI bleed. Patient is on aspirin and colchicine daily with no GI prophylaxis at home. Hospital Course Hospital Course: Ms. Bourne is an 80-year-old female with dementia who lives at home by herself but has close help from family. She presented due to concern for GI bleed. Was scoped and found to have duodenal ulceration but no active bleeding. Transfused during admission. Has been monitored with slow advancement of her diet. Patient has remained hemodynamically stable, blood pressure slightly higher than goal but no intervention added during hospitalization. Kidney function has improved somewhat with transfusion during hospitalization. At this time she has stable hemoglobin, no further bleeding for over 48 hours, tolerating p.o. intake. Medically stable for discharge home with home health to assist with medication management. Will address blood pressure regimen at follow-up next week during home visit with our nurse practitioner, Brionna Dodson. Continue Unna boots twice weekly for lower extremity edema, home health consulted for this. Denies chest pain, nausea, vomiting, abdominal pain, shortness of breath. Objective Vital signs: Temp Pulse Resp BP Pulse Ox 97.7 F 69 18 174/58 H 96 07/22/20 04:00 07/22/20 04:00 07/22/20 04:00 07/22/20 04:00 07/22/20 04:00 no acute distress, morbidly obese - *Routine HEENT Exam Head: Present: normocephalic Eye: Present: EOMI, PERRL ENT: Present: mucous membranes moist - *Routine Neck Exam Present: supple - *Routine Respiratory Exam Present: CTA bilaterally - *Routine Cardiovascular Exam Present: RRR - *Routine Abdominal Exam Present: soft, normoactive bowel sounds. Absent: tenderness - *Routine Extremities Exam Present: edema (1+ above unna boots. Unna wraps present bilaterally). Absent: cyanosis, clubbing - *Routine Skin Exam Present: warm. Absent: rash - *Routine Neurological Exam Present: alert pleasantly disoriented to place and time. Oriented to person Results Labs on day of discharge: Labs from last 24 hours 07/22/20 07/18/20 07:38 17:15 Sodium 144 Potassium 3.6 Chloride 107 Carbon Dioxide 29 Anion Gap 11.6 BUN 38 H Crea
--- NOTE | 2020-07-22 13:54 | SW/DCPLANNER ---
RECEIVED REFERRAL FOR HOME HEALTH FOR INTERMEDIATE, PT/OT AND UNNA BOOTS TO BILATERAL LOWER LEGS AND MED MANAGEMENT... PATIENT IS AN ESTABLISHED WITH [facility] AND WILL CONTINUE WITH THEIR SERVICES.. SHE IS DISCHARGING HOME TODAY AND SERVICES TO START IN THE AM....
== END 2020-07-22 10:58 | disposition home or self-care (01) | DRG 378 ==
LOC: ER 19:15 → 2ND 19:35
PROVIDERS: Internal Medicine Adolescent Medicine; Surgery; Admitting Provider Family Medicine; Emergency Provider Emergency Medicine; PCP Internal Medicine Adolescent Medicine; Visit Provider Internal Medicine Adolescent Medicine
PROC: 0DJ08ZZ Inspection of Upper Intestinal Tract, Via Natural or Artificial Opening Endoscopic (ICD-10-PCS; CPT 43235; principal; 2020-07-19 09:30)
DX: K26.4 Chronic or unspecified duodenal ulcer with hemorrhage (principal); D62 Acute posthemorrhagic anemia; N18.4 Chronic kidney disease, stage 4 (severe); N17.9 Acute kidney failure, unspecified; Z20.822 Contact with and (suspected) exposure to COVID-19; Z68.41 Body mass index [BMI] 40.0-44.9, adult; I13.0 Hypertensive heart and chronic kidney disease with heart failure and stage 1 through stage 4 chronic kidney disease, or unspecified chronic kidney disease; F03.90 Unspecified dementia, unspecified severity, without behavioral disturbance, psychotic disturbance, mood disturbance, and anxiety; Z79.82 Long term (current) use of aspirin; Z95.0 Presence of cardiac pacemaker; I50.9 Heart failure, unspecified; E66.01 Morbid (severe) obesity due to excess calories; E78.5 Hyperlipidemia, unspecified; Z96.652 Presence of left artificial knee joint
CPT/HCPCS: 43255; 43239; 36415; 36430; 80048; 80053; 82272; 83735; 85014; 85018; 85025; 86850; 88305; 88342; 97110; 97116; 97162; 97165; 97530; 99283; G0328; P9016; U0003

== ENCOUNTER → 2020-09-18 16:40 | Outpatient (CLI) | payer MEDICARE, SELFPAY ==
[2020-09-18 16:56] LABS: Basophils # 0.1 K/mm3 (0-0.2); Basophils % 0.6 % (0.1-2.0); Eosinophils # 0.3 K/mm3 (0.0-0.4); Eosinophils % 4.3 % (0.1-12.0); Hematocrit 38.4 % (37.0-47.0); Hemoglobin 12.3 g/dL (12.2-16.2); Lymphocytes # 2.4 K/mm3 (0.7-4.5); Lymphocytes % 30.3 % (10-50); Mean Corpuscular HGB Conc 31.9 g/dL (31.8-35.4); Mean Corpuscular Hemoglobin 26.8 pg (27.0-31.2); Mean Corpuscular Volume 83.9 fl (81-99); Mean Platelet Volume 9.1 fl (7.4-10.4); Monocytes # 0.3 K/mm3 (0.1-1.0); Monocytes % 3.1 % (1.7-9.3); Neutrophils % 61.8 % (37.0-80.0); Platelet Count 237 K/mm3 (142-424); Red Blood Count 4.58 M/mm3 (4.20-5.40); Red Cell Distribution Width 18.5 % (11.5-17.5)
[2020-09-18 17:19] LABS: Alanine Aminotransferase 18 U/L (12-78); Albumin Level 4.2 g/dl (3.5-5.0); Albumin/Globulin Ratio 1.5 (1.1-1.8); Alkaline Phosphatase 120 U/L (38-126); Anion Gap 18.2 mEq/L (5-15); Aspartate Amino Transferase 27 U/L (14-36); Bilirubin,Total 0.5 mg/dl (0.2-1.3); Calcium 9.3 mg/dl (8.4-10.2); Carbon Dioxide 34 mmol/L (22.0-30.0); Chloride 97 mmol/L (98-107); Estimated Glomerular Filt Rate 13 ml/min (>60); GFR (African American) 15 ML/MIN (>60); Globulin 2.8 g/dL (1.3-3.2); Glucose 162 mg/dl (74-100); Potassium 4.2 mmoL/L (3.5-5.1); Sodium 145 mmol/L (136-145)
[2020-09-18 19:41] LABS: Blood Urea Nitrogen 94 mg/dl (7-17)
== END ==
PROVIDERS: Visit Provider Internal Medicine Adolescent Medicine
DX: N17.9 Acute kidney failure, unspecified (principal)
CPT/HCPCS: 80053; 85025